=== PATIENT | female | born 1970 | race African-American/Black ===

== ENCOUNTER 2019-08-02 22:28 | Emergency (ER) | payer MEDICAID ==
[~2019-08-02] VITALS: Ht 167.6 cm; Wt 103.0 kg
[2019-08-02 22:49] VITALS: BP 154/87
== END 2019-08-03 04:22 | disposition left against medical advice (07) ==
LOC: ER 22:28
DX: Z53.21 Procedure and treatment not carried out due to patient leaving prior to being seen by health care provider (principal)